=== PATIENT | female | born 1965 | race Caucasian/White ===

== ENCOUNTER 2017-05-31 14:22 | Emergency (ER) | payer OTHER ==
[~2017-05-31] VITALS: Ht 154.9 cm; Wt 67.1 kg
[~2017-05-31 14:22] MED LIST: ABILIFY 5 MG TAB5 M1 OR; ACETAMINOPHEN325 M1 PO; AMBIEN 10 MG TA10 MG PO; AMBIEN OR; AUGMENTIN 875875 M1 PO; CARVEDILOL3.125 MG PO; CELEXA 20 MG TA20 M1 PO; COREG OR; HUMALOG100 UNIT/1; KLONOPIN0.5 MG PO; LANTUS SUBQ; LEXAPRO20 MG PO; LIPITOR20 MG PO; LISINOPRIL10 MG PO; NOVOLOG100 UNIT/1; PROVENTIL INH; REMERON15 MG PO; REMERON30 MG PO; TERBINAFINE HCL30 GM; VALTREX1000 MG PO; VICODIN 5-5001 EACH PO
[2017-05-31 14:25] VITALS: BP 145/62
[2017-05-31] MEDS ORDERED: MOBIC7.5 MG PO (15:11)
[2017-05-31] MEDS ORDERED: NORFLEX100 MG PO (15:11)
[2017-05-31] MEDS ORDERED: HYDROCODONE-AP1 EAC6 PO (15:11)
== END 2017-05-31 15:46 | disposition home or self-care (01) ==
LOC: ER 14:22
DX: M54.6 Pain in thoracic spine (principal); Z76.5 Malingerer [conscious simulation]; Z88.6 Allergy status to analgesic agent; Z88.8 Allergy status to other drugs, medicaments and biological substances; Z91.018 Allergy to other foods